=== PATIENT | female | born 1990 | race Caucasian/White ===

== ENCOUNTER 2020-11-05 18:51 | Inpatient (IN) ==
[2020-11-05 19:56] LABS: Basophils # (auto) 0.05 K/uL (0-0.2); Basophils % (auto) 0.4 %; Eosinophils # (auto) 0.61 K/uL (0-0.5); Eosinophils % (auto) 5.5 %; Hematocrit (blood only) 42.9 % (37-47); Hemoglobin 14.5 g/dL (12.0-16.0); Immature Granulocytes # (auto) 0.02 K/uL (0.00-0.02); Immature Granulocytes % (auto) 0.2 %; Lymphocytes # (auto) 3.37 K/uL (1.2-3.4); Lymphocytes % (auto) 30.3 %; Mean Corpuscular Hemoglobin 29.8 pg (25-34); Mean Corpuscular Hgb Conc 33.8 g/dL (32-36); Mean Corpuscular Volume 88.3 fL (80-100); Mean Platelet Volume 10.6 fL (7.4-10.4); Monocytes % (auto) 7.2 %; Neutrophils # (auto) 6.29 K/uL (1.4-6.5); Neutrophils % (auto) 56.4 %; Platelet Count 340 K/uL (130-400); RDW Coefficient of Variation 12.5 % (11.5-14.5); RDW Standard Deviation 40.4 fL (36.4-46.3); Red Blood Count 4.86 M/uL (4.2-5.4); White Blood Count 11.14 K/uL (4.8-10.8)
[2020-11-05 20:17] LABS: Appearance Urine Clear (Clear); Bacteria Urine Automated 1+ (Negative); Bilirubin Urine Negative (Negative); Blood Urine 3+ (Negative); Color Urine Yellow; Epithelial Cell Urine Auto >30 /lpf (0-5); Glucose Urine UA Negative (Negative); Ketones Urine Negative (Negative); Leukocyte Esterase Urine Negative (Negative); Nitrite Urine Negative (Negative); Protein Urine 3+ (Negative); Specific Gravity Urine 1.025 (1.000-1.030); Urobilinogen Urine Negative (Negative)
[2020-11-05 20:19] LABS: Albumin Level 3.6 gm/dl (3.4-5.0); Calcium 9.2 mg/dl (8.5-10.1); Creatinine Clr Calc Pharmacy 102.5 ml/min; Est GFR (African American) 91.3 ml/min; Est GFR (Non-African American) 78.8 ml/min; Potassium 3.7 mmol/L (3.5-5.1)
--- NOTE | 2020-11-05 20:29 | Emergency Department Note ---
Impression & Plan Depression with suicidal ideation ED Provider Note Provider: Corky Talley MD DATE OF SERVICE: 11/05/2020 CHIEF COMPLAINT: Depression with suicidal ideation HISTORY OF PRESENT ILLNESS: Patient is a 30-year-old female history of hypothyroidism and PTSD presenting here referred by crisis stating that over the past month or 2 she has had worsening of her depression and has had vivid thoughts of wanting to harm her self and using a gun to kill her self. Patient states this got worse today and that she told her mother and contacted crisis and was sent here. Patient relays a history of inpatient psychiatric care. History of PTSD and has been on medications before but these found these have not been helpful. States she does not want medications but wants to work on coping skills. Patient states she came out as homosexual to her father and he kicked her out of her living situation in [place] and she lost her job and things fell apart and thus came here to be with her mother last month. Does not currently have a counselor here. States she wants help and she believes she needs inpatient treatment. REVIEW OF SYSTEMS: A total of 10 review of systems was obtained and negative except as stated above in the HPI. PAST MEDICAL HISTORY: As noted above MEDICATIONS: Denies current prescription medications currently living with her mother SOCIAL HISTORY: Recently moved here from [place], denies current drug use but history of marijuana abuse PHYSICAL EXAM: GENERAL: alert and oriented in no acute distress on stretcher appears somewhat anxious with mother in room Head: normocephalic and atraumatic EYES: No injection, discharge or icterus. NECK: Trachea midline. Supple. ENT: Mucous membranes pink and moist. LUNGS: Airway patent. No retractions or tachypnea HEART: Regular rate and rhythm. SKIN: Acyanotic, warm, dry, without rashes NEUROLOGICAL: No focal deficits. No aphasia. No facial droop or slurred speech. Psych: Patient is significantly anxious and tearful during the exam. Patient endorses depression with suicidal ideation and plans to use a gun to kill her self. Patient states she has had anger verbal outburst but has not tried to harm anybody else and does not wish to harm anybody else. Patient's laboratory studies reviewed. Differential includes Mood disorder, infection, hypoglycemia, electrolyte abnormalities, cardiac sources, intracerebral event, toxicologic, trauma, neurologic, as well as other pathologies. IMPRESSION/MEDICAL DECISION MAKING: Patient here seeking possible inpatient treatment and worsening depression and now suicidal ideation. Denies attempting to harm self at the current time but states he is a plan to use a gun. Quite tearful. Does not want to go to the [facility]. States history of inpatient treatment. Basic labs were completed without significant abnormality. Referrals will be made for inpatient treatment given the severity of her complaints. Seen with rn case management. Referrals for inpatient treatment made. Somewhat hypertensive here and doubt with her anxiety symptoms given a small dose of propranolol to help with both. Accepted by [facility] for further inpatient care on . DIAGNOSIS: Depression with suicidal ideation DISPOSITION: [facility] 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 Beliefs That Will Affect Care: None Feels Safe at Home: Yes Assistive Devices: None Allergies Allergies Allergy/AdvReac Type Severity Reaction Status Date / Time Penicillins Allergy Unknown HIVES Verified 11/05/20 19:52 Home Meds Home Medications Medication Instructions Recorded Confirmed No Known Home Medications 11/05/20 11/05/20 Results & Data (ED) Vital Signs Vital Signs - 24 hr 11/05/20 19:03 Temperature 36.7 C Temperature Source Temporal Artery Scan Pulse Rate 81 Pulse Rhythm Regular Pulse Strength Normal Respiratory Rate 18 Respiratory Effort / Characteristics Non-Labored Spontaneous Respiratory Depth Normal Respiratory Pattern Regular Blood Pressure 155/112 H Blood Pressure Mean 126 Blood Pressure Position Sitting Pulse Oximetry 98 Oxygen Delivery Method Room Air Sepsis Recent Fever Within 48 Hours No Sepsis New/Unexplained Change in Mental Status N/A Sepsis Action Taken by Nursing No Action Required Laboratory Data Result diagrams: 11/05/20 19:38 11/05/20 19:38 Lab Results 11/05/20 11/05/20 11/05/20 Range/Units 19:38 19:38 19:38 WBC 11.14 H (4.8-10.8) K/uL RBC 4.86 (4.2-5.4) M/uL Hgb 14.5 (12.0-16.0) g/dL Hct 42.9 (37-47) % MCV 88.3 (80-100) fL MCH 29.8 (25-34) pg MCHC 33.8 (32-36) g/dL RDW Std Deviation 40.4 (36.4-46.3) fL RDW Coeff of Shana 12.5 (11.5-14.5) % Plt Count 340 (130-400) K/uL MPV 10.6 H (7.4-10.4) fL Immature Gran % (Auto) 0.2 % Neut % (Auto) 56.4 % Lymph % (Auto) 30.3 % [place] % (Auto) 7.2 % Eos % (Auto) 5.5 % Baso % (Auto) 0.4 % Neut # (Auto) 6.29 (1.4-6.5) K/uL Lymph # (Auto) 3.37 (1.2-3.4) K/uL [place] # (Auto) 0.80 H (0.11-0.59) K/uL Eos # (Auto) 0.61 H (0-0.5) K/uL Baso # (Auto) 0.05 (0-0.2) K/uL Immature Gran # (Auto) 0.02 (0.00-0.02) K/uL Sodium 138 (136-145) mmol/L Potassium 3.7 (3.5-5.1) mmol/L Chloride 105 (98-107) mmol/L Carbon Dioxide 27 (21-32) mmol/L Anion Gap 5.0 (3-11) BUN 17 (7-18) mg/dl Creatinine 0.96 (0.6-1.2) mg/dl Est Cr Clr Drug Dosing 102.5 ml/min Est GFR ( Amer) 91.3 ml/min Est GFR (Non-Af Amer) 78.8 ml/min BUN/Creatinine Ratio 18.0 (10-20) Glucose 94 (70-99) mg/dl Calcium 9.2 (8.5-10.1) mg/dl Total Bilirubin 0.3 (0.2-1) mg/dl AST 19 (15-37) U/L ALT 26 (12-78) U/L Alkaline Phosphatase 53 (45-117) U/L Total Protein 7.5 (6.4-8.2) gm/dl Albumin 3.6 (3.4-5.0) gm/dl Globulin 3.9 (2.5-4.0) gm/dl Albumin/Globulin Ratio 0.9 (0.9-2) TSH 7.340 H (0.300-4.500) uIu/ml Free T4 0.99 (0.8-1.6) ng/dl Urine Color Urine Appearance (Clear) Urine pH (4.5-7.5) Ur Specific [place] (1.000-1.030) Urine Protein (Negative) Urine Glucose (UA) (Negative) Urine Ketones (Negative) Urine Blood (Negative) Urine Nitrite (Negative) Urine Bilirubin (Negative) Urine Urobilinogen (Negative) Ur Leukocyte Esterase (Negative) Urine WBC (Auto) (0-5) /hpf Urine RBC (Auto) (0-4) /hpf U Hyaline Cast (Auto) (0-5) /lpf U Epithel Cells (Auto) (0-5) /lpf Urine Bacteria (Auto) (Negative) POC Ur Test (NEG) Salicylates < 1.7 L (2.8-20) mg/dl Urine Opiates Screen (Neg) Ur Methadone, Qual (Neg) Acetaminophen < 2 L (10-30) ug/ml Urine Barbiturates (Neg) Ur Phencyclidine (PCP) (Neg) U Amphetamin/Meth Scrn (Neg) MDMA (Ecstasy) Screen (Neg) U Benzodiazepines Scrn (Neg) Ur Cocaine Metabolite (Neg) U Marijuana (THC) Screen (Neg) Ethyl Alcohol mg/dL (0-3) mg/dl COVID-19 Eval Order SARS-CoV-2 (PCR) (Negative) 11/05/20 11/05/20 11/05/20 Range/Units 19:38 19:45 19:45 WBC (4.8-10.8) K/uL RBC (4.2-5.4) M/uL Hgb (12.0-16.0) g/dL Hct (37-47) % MCV (80-100) fL MCH (25-34) pg MCHC (32-36) g/dL RDW Std Deviation (36.4-46.3) fL RDW Coeff of Shana (11.5-14.5) % Plt Count (130-400) K/uL MPV (7.4-10.4) fL Immature Gran % (Auto) % Neut % (Auto) % Lymph % (Auto) % [place] % (Auto) % Eos % (Auto) % Baso % (Auto) % Neut # (Auto) (1.4-6.5) K/uL Lymph # (Auto) (1.2-3.4) K/uL [place] # (Auto) (0.11-0.59) K/uL Eos # (Auto) (0-0.5) K/uL Baso # (Auto) (0-0.2) K/uL Immature Gran # (Auto) (0.00-0.02) K/uL Sodium (136-145) mmol/L Potassium (3.5-5.1) mmol/L Chloride (98-107) mmol/L Carbon Dioxide (21-32) mmol/L Anion Gap (3-11) BUN (7-18) mg/dl Creatinine (0.6-1.2) mg/dl Est Cr Clr Drug Dosing ml/min Est GFR ( Amer) ml/min Est GFR (Non-Af Amer) ml/min BUN/Creatinine Ratio (10-20) Glucose (70-99) mg/dl Calcium (8.5-10.1) mg/dl Total Bilirubin (0.2-1) mg/dl AST (15-37) U/L ALT (12-78) U/L Alkaline Phosphatase (45-117) U/L Total Protein (6.4-8.2) gm/dl Albumin (3.4-5.0) gm/dl Globulin (2.5-4.0) gm/dl Albumin/Globulin Ratio (0.9-2) TSH (0.300-4.500) uIu/ml Free T4 (0.8-1.6) ng/dl Urine Color Urine Appearance (Clear) Urine pH (4.5-7.5) Ur Specific [place] (1.000-1.030) Urine Protein (Negative) Urine Glucose (UA) (Negative) Urine Ketones (Negative) Urine Blood (Negative) Urine Nitrite (Negative) Urine Bilirubin (Negative) Urine Urobilinogen (Negative) Ur Leukocyte Esterase (Negative) Urine WBC (Auto) (0-5) /hpf Urine RBC (Auto) (0-4) /hpf U Hyaline Cast (Auto) (0-5) /lpf U Epithel Cells (Auto) (0-5) /lpf Urine Bacteria (Auto) (Negative) POC Ur Test (NEG) Salicylates (2.8-20) mg/dl Urine Opiates Screen (Neg) Ur Methadone, Qual (Neg) Acetaminophen (10-30) ug/ml Urine Barbiturates (Neg) Ur Phencyclidine (PCP) (Neg) U Amphetamin/Meth Scrn (Neg) MDMA (Ecstasy) Screen (Neg) U Benzodiazepines Scrn (Neg) Ur Cocaine Metabolite (Neg) U Marijuana (THC) Screen (Neg) Ethyl Alcohol mg/dL < 3.0 (0-3) mg/dl COVID-19 Eval Order Covid19 at [facility] SARS-CoV-2 (PCR) NEGATIVE (Negative) 11/05/20 11/05/20 11/05/20 Range/Units 19:55 19:55 19:55 WBC (4.8-10.8) K/uL RBC (4.2-5.4) M/uL Hgb (12.0-16.0) g/dL Hct (37-47) % MCV (80-100) fL MCH (25-34) pg MCHC (32-36) g/dL RDW Std Deviation (36.4-46.3) fL RDW Coeff of Shana (11.5-14.5) % Plt Count (130-400) K/uL MPV (7.4-10.4) fL Immature Gran % (Auto) % Neut % (Auto) % Lymph % (Auto) % [place] % (Auto) % Eos % (Auto) % Baso % (Auto) % Neut # (Auto) (1.4-6.5) K/uL Lymph # (Auto) (1.2-3.4) K/uL [place] # (Auto) (0.11-0.59) K/uL Eos # (Auto) (0-0.5) K/uL Baso # (Auto) (0-0.2) K/uL Immature Gran # (Auto) (0.00-0.02) K/uL Sodium (136-145) mmol/L Potassium (3.5-5.1) mmol/L Chloride (98-107) mmol/L Carbon Dioxide (21-32) mmol/L Anion Gap (3-11) BUN (7-18) mg/dl Creatinine (0.6-1.2) mg/dl Est Cr Clr Drug Dosing ml/min Est GFR ( Amer) ml/min Est GFR (Non-Af Amer) ml/min BUN/Creatinine Ratio (10-20) Glucose (70-99) mg/dl Calcium (8.5-10.1) mg/dl Total Bilirubin (0.2-1) mg/dl AST (15-37) U/L ALT (12-78) U/L Alkaline Phosphatase (45-117) U/L Total Protein (6.4-8.2) gm/dl Albumin (3.4-5.0) gm/dl Globulin (2.5-4.0) gm/dl Albumin/Globulin Ratio (0.9-2) TSH (0.300-4.500) uIu/ml Free T4 (0.8-1.6) ng/dl Urine Color Yellow Urine Appearance Clear (Clear) Urine pH 6.0 (4.5-7.5) Ur Specific [place] 1.025 (1.000-1.030) Urine Protein 3+ H (Negative) Urine Glucose (UA) Negative (Negative) Urine Ketones Negative (Negative) Urine Blood 3+ H (Negative) Urine Nitrite Negative (Negative) Urine Bilirubin Negative (Negative) Urine Urobilinogen Negative (Negative) Ur Leukocyte Esterase Negative (Negative) Urine WBC (Auto) 5-10 H (0-5) /hpf Urine RBC (Auto) 10-30 H (0-4) /hpf U Hyaline Cast (Auto) 5-10 H (0-5) /lpf U Epithel Cells (Auto) >30 H (0-5) /lpf Urine Bacteria (Auto) 1+ H (Negative) POC Ur Test NEG (NEG) Salicylates (2.8-20) mg/dl Urine Opiates Screen Neg (Neg) Ur Methadone, Qual Neg (Neg) Acetaminophen (10-30) ug/ml Urine Barbiturates Neg (Neg) Ur Phencyclidine (PCP) Neg (Neg) U Amphetamin/Meth Scrn Neg (Neg) MDMA (Ecstasy) Screen Neg (Neg) U Benzodiazepines Scrn Neg (Neg) Ur Cocaine Metabolite Neg (Neg) U Marijuana (THC) Screen Pos H (Neg) Ethyl Alcohol mg/dL (0-3) mg/dl COVID-19 Eval Order SARS-CoV-2 (PCR) (Negative) Administered Medications Discontinued Medications Propranolol HCl (Propranolol Hcl 20 Mg Tab) 40 mg PO BID PARISA Stop: 12/05/20 23:14 Last Admin: 11/05/20 23:35 Dose: 40 mg Documented by: [id number] Discharge Plan Visit Data Chief Complaint: Mental Health Evaluation Stated Complaint: DEPRESSION, SUICIDE PLAN AND THOUGHTS ED Provider: Corky Talley Discharge Problem: Depression with suicidal ideation Patient Disposition: Admitted As Inpatient Discharge Instructions Interventions: ED Discharge Assessment Last Done: 11/05/20 23:37
[2020-11-05 20:30] LABS: Albumin Globulin Ratio 0.9 (0.9-2); Bilirubin,Total 0.3 mg/dl (0.2-1); Globulin 3.9 gm/dl (2.5-4.0); Thyroid Stimulating Hormone 7.34 uIu/ml (0.300-4.500); Total Protein 7.5 gm/dl (6.4-8.2)
[2020-11-05 20:35] LABS: Amphetamines+Metham, Urine Neg (Neg); Barbiturates, Urine Neg (Neg); Benzodiazepine, Urine Neg (Neg); Cocaine, Urine Neg (Neg); MDMA (Ecstacy), Urine Neg (Neg); Methadone, Urine Neg (Neg); Opiate, Urine Neg (Neg); Phencyclidine, Urine Neg (Neg)
[2020-11-05 20:44] LABS: Acetaminophen < 2 ug/ml (10-30)
[2020-11-05 20:45] LABS: T4 Free Thyroxine 0.99 ng/dl (0.8-1.6)
[2020-11-05 20:46] LABS: Salicylate < 1.7 mg/dl (2.8-20)
[2020-11-05] MEDS ORDERED: PROPRANOLOL HCL 20 MG TAB PO SCH (23:15)
[2020-11-06] MEDS ORDERED: ALUMINUM/MAGNESIUM SUSP 30 ML UDC PO PRN (00:12)
[2020-11-06] MEDS ORDERED: hydrOXYzine HCl 25 MG TAB PO PRN ×2 (00:12)
[2020-11-06] MEDS ORDERED: SODIUM CHLORIDE 0.65% NA SOLN 45 ML (OCEAN) PRN (00:12)
[2020-11-06] MEDS ORDERED: BISMUTH SUBSALICYLATE LIQD 236 ML PO PRN (00:12)
[2020-11-06] MEDS ORDERED: MAGNESIUM HYDROXIDE SUSP 30 ML UDC PO PRN (00:12)
[2020-11-06] MEDS ORDERED: ACETAMINOPHEN 325 MG TAB PO PRN (00:12)
[2020-11-06] MEDS ORDERED: diazePAM 5 MG TABLET PO ONE (00:15)
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
[2020-11-07] MEDS: ESCITALOPRAM OXALATE 10 MG TAB PO SCH (08:50)
[2020-11-07] MEDS: LEVOTHYROXINE SODIUM 112 MCG TABLET PO SCH (08:50)
--- NOTE | 2020-11-07 14:51 | Psychiatric Progress Note ---
Date of Service November 07, 2020 Impression / Recommendations Impression 30-year-old female with a past psychiatric history significant for episodes of major depression and one prior suicide attempt who presents with worsening depression in the context of social stressors and medication noncompliance. Patient is agreeable to be restarted on low-dose Lexapro to address her depressive symptoms of low mood, poor sleep, feelings of hopelessness, feelings of guilt and worthlessness, and suicidal ideation. Patient will benefit from inpatient hospitalization for purposes of safety, stabilization, and medication management. (1) Depression with suicidal ideation: The patient was admitted to the [facility] ([facility] mental health unit) on every 15 minute checks (behavioral with suicide precautions for safety. The patient will participate in group, recreational, and milieu therapies and will be offered additional individual and family sessions as clinically appropriate. 11/07/2020atient doing well on Lexapro. We will continue at the current dosage. Patient already starting to make improvements with regard to mood, although still does struggle with anger and aggression which prompted her admission. We will start discharge planning with him anticipated discharge date of Thursday. 11/06/2020we'll start patient on Lexapro 10 mg p.o. every morning starting tomorrow morning. Protective Factors Assessment Employed: Yes Interval History Chief Complaint "I was upset last night but I'm okay now". Review of Systems Sleep Information Total Hours of Sleep: 7 Sleep Comments: See nurse's note. Patient was awake for a period of time due to being irritable from having a room mate. Meal Information Percent Meal Consumed - Breakfast: 95 Percent Meal Consumed - Lunch: 75 Percent Meal Consumed - Dinner: 100 Subjective Subjective Patient seen, chart reviewed and case discussed with treatment team, nursing and social work. Patient was started on Lexapro 10 mg as well as level thyroxine 112 mcg this morning. She is denying any side effects as of this afternoon. Patient did take 50 mg of hydroxyzine last night at approximately 1 AM after she was awoken due to room change situation. Patient was initially upset that she had to obtain a roommate but was explained the limited beds and was eventually able to calm down and go to sleep. Today patient is stating that she is getting along well with her roommate and is finding the unit groups to be helpful. She continues to deny SI but does still report low mood. I spent 30 minutes with the patient, 50% of which was dedicated to counselling and coordination of care. Physical Exam Psychiatric Orientation: alert and oriented x 3 Apperance: appropriately dressed Eye Contact: good eye contact Motor Behavior: no abnormal motor movements Speech: normal rate/rhythm/volume of speech Affect: + depressed affect and + tearful affect Mood: + depressed mood Thought Process: linear/logical thought process Thought Content: reality based without delusions Suicidal Thoughts: denies suicidal intent; + reports suicidal thoughts Homicidal Thoughts: denies homicidal thoughts Hallucinations: no auditory hallucinations and no visual hallucinations Cognition: remote memory grossly intact Estimated Intelligence: consistent with education level Insight: + fair insight Judgement: + poor judgement Vital Signs (Past 24 Hours) Last Vital Signs Temp 36.8 C 11/07/20 06:44 Pulse 81 11/07/20 06:46 Resp 16 11/07/20 06:44 BP 124/85 11/07/20 06:46 Pulse Ox 98 11/06/20 00:14 Results & Data ([facility]) Current Inpatient Medications Current Inpatient Medications: Current Inpatient Medications Acetaminophen (Acetaminophen 325 Mg Tab) 650 mg PO Q4H PRN PRN Reason: Headache or Minor Fever Stop: 12/06/20 00:11 Al Hydrox/Mg Hydrox/Simethicone (Aluminum/Magnesium Susp 30 Ml Udc) 30 ml PO Q4H PRN PRN Reason: GI Upset Stop: 12/06/20 00:11 Bismuth Subsalicylate (Bismuth Subsalicylate Liqd 236 Ml) 15 ml PO PRN PRN PRN Reason: Loose Stool Stop: 12/06/20 00:11 Escitalopram Oxalate (Escitalopram Oxalate 10 Mg Tab) 10 mg PO QAM PARISA Stop: 12/07/20 08:59 Last Admin: 11/07/20 08:50 Dose: 10 mg Documented by: Hydroxyzine HCl (Hydroxyzine Hcl 25 Mg Tab) 50 mg PO HSZ PRN PRN Reason: Insomnia Stop: 12/06/20 00:11 Last Admin: 11/07/20 01:03 Dose: 50 mg Documented by: Hydroxyzine HCl (Hydroxyzine Hcl 25 Mg Tab) 25 mg PO Q4H PRN PRN Reason: Anxiety Stop: 12/06/20 00:11 Levothyroxine Sodium (Levothyroxine Sodium 112 Mcg Tablet) 112 mcg PO DAILYBB PARISA Stop: 12/07/20 07:59 Last Admin: 11/07/20 08:50 Dose: 112 mcg Documented by: Magnesium Hydroxide (Magnesium Hydroxide Susp 30 Ml Udc) 30 ml PO DAILY PRN PRN Reason: Constipation Stop: 12/06/20 00:11 Sodium Chloride (Sodium Chloride 0.65% Na Soln 45 Ml ([place])) 1 - 2 sprays NA PRN PRN PRN Reason: Nasal Dryness/Congestion Stop: 12/06/20 00:11
[2020-11-08] MEDS: LEVOTHYROXINE SODIUM 112 MCG TABLET PO SCH (08:47)
[2020-11-08] MEDS: ESCITALOPRAM OXALATE 10 MG TAB PO SCH (08:47)
[2020-11-08 09:25] LABS: Marijuana Quant, GCMS Urine 116 ng/mL (<5)
--- NOTE | 2020-11-08 15:57 | Psychiatric Progress Note ---
Date of Service November 08, 2020 Impression / Recommendations Impression 30-year-old female with a past psychiatric history significant for episodes of major depression and one prior suicide attempt who presents with worsening depression in the context of social stressors and medication noncompliance. Patient is agreeable to be restarted on low-dose Lexapro to address her depressive symptoms of low mood, poor sleep, feelings of hopelessness, feelings of guilt and worthlessness, and suicidal ideation. Patient will benefit from inpatient hospitalization for purposes of safety, stabilization, and medication management. (1) Depression with suicidal ideation: The patient was admitted to the [facility] ([facility] mental health unit) on every 15 minute checks (behavioral with suicide precautions for safety. The patient will participate in group, recreational, and milieu therapies and will be offered additional individual and family sessions as clinically appropriate. 11/08/2020atient continues to do well on current regimen we will plan for discharge tomorrow. 11/07/2020atient doing well on Lexapro. We will continue at the current dosage. Patient already starting to make improvements with regard to mood, although still does struggle with anger and aggression which prompted her admission. We will start discharge planning with him anticipated discharge date of Thursday. 11/06/2020we'll start patient on Lexapro 10 mg p.o. every morning starting tomorrow morning. Protective Factors Assessment Employed: Yes Interval History Chief Complaint "I'm okay". Review of Systems Sleep Information Total Hours of Sleep: 4 Sleep Comments: pt difficulties with sleeping due to roommate being awake. pt on q-15 minute checks Meal Information Percent Meal Consumed - Breakfast: 100 Percent Meal Consumed - Lunch: 90 Percent Meal Consumed - Dinner: 60 Subjective Subjective Patient seen, chart reviewed and case discussed with treatment team, nursing and social work. Patient reports a good appetite. No side effects reported or observed. Patient reports poor sleep due to environmental factors and eventually was able to sleep without issue. Regarding mood, patient reports some improvement which they attribute to the medications as well as the therapy they have received on the unit. I spent 30 minutes with the patient, 50% of which was dedicated to counselling and coordination of care. Physical Exam Psychiatric Orientation: alert and oriented x 3 Apperance: appropriately dressed Eye Contact: good eye contact Motor Behavior: no abnormal motor movements Speech: normal rate/rhythm/volume of speech Affect: + depressed affect and + tearful affect Mood: + depressed mood Thought Process: linear/logical thought process Thought Content: reality based without delusions Suicidal Thoughts: denies suicidal intent; + reports suicidal thoughts Homicidal Thoughts: denies homicidal thoughts Hallucinations: no auditory hallucinations and no visual hallucinations Cognition: remote memory grossly intact Estimated Intelligence: consistent with education level Insight: + fair insight Judgement: + poor judgement Vital Signs (Past 24 Hours) Last Vital Signs Temp 36.5 C 11/08/20 06:57 Pulse 84 11/08/20 06:58 Resp 16 11/08/20 06:57 BP 137/84 11/08/20 06:58 Pulse Ox 98 11/06/20 00:14 Results & Data ([facility]) Laboratory Results Laboratory Results - last 24 hr 11/05/20 19:55 U Marijuana THC Carboxy 116 H Drug Screen Comment SEE NOTE Current Inpatient Medications Current Inpatient Medications: Current Inpatient Medications Acetaminophen (Acetaminophen 325 Mg Tab) 650 mg PO Q4H PRN PRN Reason: Headache or Minor Fever Stop: 12/06/20 00:11 Al Hydrox/Mg Hydrox/Simethicone (Aluminum/Magnesium Susp 30 Ml Udc) 30 ml PO Q4H PRN PRN Reason: GI Upset Stop: 12/06/20 00:11 Bismuth Subsalicylate (Bismuth Subsalicylate Liqd 236 Ml) 15 ml PO PRN PRN PRN Reason: Loose Stool Stop: 12/06/20 00:11 Escitalopram Oxalate (Escitalopram Oxalate 10 Mg Tab) 10 mg PO QAM PARISA Stop: 12/07/20 08:59 Last Admin: 11/08/20 08:47 Dose: 10 mg Documented by: Hydroxyzine HCl (Hydroxyzine Hcl 25 Mg Tab) 50 mg PO HSZ PRN PRN Reason: Insomnia Stop: 12/06/20 00:11 Last Admin: 11/07/20 01:03 Dose: 50 mg Documented by: Hydroxyzine HCl (Hydroxyzine Hcl 25 Mg Tab) 25 mg PO Q4H PRN PRN Reason: Anxiety Stop: 12/06/20 00:11 Last Admin: 11/08/20 12:34 Dose: 25 mg Documented by: Levothyroxine Sodium (Levothyroxine Sodium 112 Mcg Tablet) 112 mcg PO DAILYBB PARISA Stop: 12/07/20 07:59 Last Admin: 11/08/20 08:47 Dose: 112 mcg Documented by: Magnesium Hydroxide (Magnesium Hydroxide Susp 30 Ml Udc) 30 ml PO DAILY PRN PRN Reason: Constipation Stop: 12/06/20 00:11 Last Admin: 11/08/20 10:56 Dose: 30 ml Documented by: Sodium Chloride (Sodium Chloride 0.65% Na Soln 45 Ml ([place])) 1 - 2 sprays NA PRN PRN PRN Reason: Nasal Dryness/Congestion Stop: 12/06/20 00:11 Mental Health & Subst Abuse Tx Psychiatrist Name of Psychiatrist: Dr. Graham will refer you after appointment Therapist Name of Therapist: [facility] Therapist's Therapy Appointment Comment: To schedule appt, complete intake paperwork on portal. Workgroup Leader Name of Workgroup Leader: [employer] Phone Number for Workgroup Leader: [phone] Post Discharge Appointments Primary Care Physician Name Of Family Doctor: Kristie Graham Primary Care Date of Appointment with PCP: 11/16/20 Time of Appointment with PCP: 3:25 PM Provider Appointment Comment: [address] [facility] Contact Information Discharge Discharge Address: [address] [place] [address]
[2020-11-09] MEDS: LEVOTHYROXINE SODIUM 112 MCG TABLET PO SCH (09:01)
[2020-11-09] MEDS: ESCITALOPRAM OXALATE 10 MG TAB PO SCH (09:01)
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
== END 2020-11-09 10:25 | disposition home or self-care (01) | DRG 885 ==
LOC: ED 18:51 → 3S 22:57